=== PATIENT | female | born 1950 ===

== ENCOUNTER 2017-09-11 09:16 | Outpatient (CLI) | payer MEDICARE ==
--- NOTE | 2017-09-12 08:57 | Mammography Report ---
BILATERAL DIGITAL SCREENING MAMMOGRAM with CAD: 09/11/17 09:16:00 CLINICAL: Routine screening. COMPARISON: None available. Her previous mammogram was in [place]. FINDINGS: The breasts are mostly fatty with a few bilateral heterogeneously dense residual retroareolar fibroglandular densities.No mass, architectural distortion or suspicious calcifications. IMPRESSION: No mammographic evidence of malignancy. BI-RADS CATEGORY: 1 -- Negative RECOMMENDATION: Routine mammographic screening in one year. COMMENT: Patient follow-up letters are generated by our [employer] application.
== END 2017-09-11 09:17 | disposition home or self-care (01) ==
LOC: SPVWC 09:16
PROVIDERS: ATTEND Nurse Practitioner Family
DX: Z12.31 Encounter for screening mammogram for malignant neoplasm of breast (principal)
CPT/HCPCS: 77067